=== PATIENT | male | born 1970 | race Caucasian/White ===

== ENCOUNTER → 2017-11-09 | Outpatient (CLI) | payer OTHER ==
--- NOTE | 2017-11-09 17:36 | CONS ---
CONSULTATION REASON FOR CONSULTATION: Sleep apnea. This is a 47-year-old male patient coming in accompanied by his due to concerns about sleep apnea. 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 He lives in [place]. He has a one-hour drive back and forth each day at work. He has not fallen asleep while driving nor has he fallen asleep while doing activities at work. He seems to be alert and awake. No major hypersomnia or sleepiness. Nevertheless, his is describing typical features of sleep apnea, as the patient has loud snoring and he quits breathing on multiple occasions throughout the night. His current Ellston score is 4. His weight has been fluctuating; at one point he was above 300 pounds and currently he is down to 294. He is trying to lose weight. His lowest body weight has been around 240 pounds. No excessive utilization of alcohol or caffeinated beverages. No intake of stimulants. He goes to bed around 11:00, wakes up at 5 a.m. in the morning, averages around 5 to 6 hours of sleep per night. No major medical problems or comorbidities otherwise other than hypertension. No restlessness in the lower extremities. No sleepwalking or sleeptalking. No nocturnal heartburn or shortness of breath. PAST MEDICAL HISTORY: 1. Hypertension. 2. Obesity. PAST SURGICAL HISTORY: Colostomy at a young age that was reversed. DRUG ALLERGIES: NOT KNOWN. MEDICATIONS: None other than lisinopril/hydrochlorothiazide 10/12.5 one tablet a day. SOCIAL HISTORY: Nonsmoker. No history of alcohol. No history of IV drugs. FAMILY HISTORY: Father has obstructive sleep apnea. REVIEW OF SYSTEMS: Twelve-point review of systems was done, and the positive findings are all mentioned above in the history of present illness. No grinding of the teeth. No sleepwalking or sleeptalking. No anxiety or panic attacks. He wakes up with a dry mouth. No palpitation. No heartburn at nighttime. No difficulties with memory or concentration, anxiety, claustrophobia or sexual dysfunction or depression. PHYSICAL EXAMINATION: BP is 140/70, pulse 96, respirations 16, temperature 98.8, saturation 99% on room air. Weight is 294. Height is 5 feet 8 inches, BMI 44.7. Neck size is 18-1/4 inches. GENERAL APPEARANCE: Calm, comfortable, in no acute distress. Head is atraumatic, normocephalic. No goiter or neck masses. There is bilateral tonsillar enlargement and an enlarged uvula with significant crowding of posterior pharynx. Mallampati class 4. Slight overbite. LUNGS: Clear to auscultation. HEART: Regular rate and rhythm. Normal S1, S2. No S3, S4. No murmurs. ABDOMEN: Soft, nontender. No organomegaly. EXTREMITIES: No edema. No cyanosis or clubbing. NEUROLOGIC: Alert and oriented x3. No focal neurological deficits. SKIN: Negative for ulceration or wounds or cellulitis. IMPRESSION: 1. Obstructive sleep apnea suspected, currently under investigation. 2. Bilateral tonsillar enlargement. 3. Significant crowding of posterior pharynx with a Mallampati class 4. 4. Obesity with a body mass index of 44.7. 5. Hypertension. PLAN: Proceed with a screening polysomnogram and decide treatment accordingly. MMTRINA / LULÚN: [id number] /
== END | disposition home or self-care (01) ==
LOC: SLEEP 15:33
PROVIDERS: ATTEND Internal Medicine Critical Care Medicine
DX: G47.30 Sleep apnea, unspecified (principal); J35.1 Hypertrophy of tonsils; I10 Essential (primary) hypertension; E66.9 Obesity, unspecified; Z68.41 Body mass index [BMI] 40.0-44.9, adult; Z79.899 Other long term (current) drug therapy
CPT/HCPCS: 99211

== ENCOUNTER → 2018-04-12 | Outpatient (CLI) | payer OTHER ==
--- NOTE | 2018-04-12 19:53 | PN ---
PROGRESS NOTE Sandeep is 47, coming in for a followup regarding his CPAP compliancy and clinical response. The patient was diagnosed having WILLIAM with an AHI of 21, worse during REM. He is extremely happy with the CPAP treatment. His sleep quality has improved and he is waking up much more alert and refreshed during the day. He has no specific complaints. His AHI while on treatment is down to 2.5. He is averaging about 6.5 hours of CPAP use per night. His CPAP use for more than 4 hours is 29 out of 30. He has absolutely no complaints and he is very much content. He is using AirFit P10 nose pillows. REVIEW OF SYSTEMS: Twelve-point review of systems was done. No chest pain. No altered mentation. No falling asleep while driving. No history of motor vehicle accidents while being sleepy or drowsy. No chest pain. No palpitation. No swelling in the lower extremities. No loss of consciousness. No other complaints otherwise. PHYSICAL EXAMINATION: BP is 133/76, pulse 96, respirations 16, weight 288, temperature 99.1. GENERAL APPEARANCE: Calm, comfortable. Head is atraumatic, normocephalic. NECK: Supple. There is no JVD. No goiter or neck masses. LUNGS: Clear to auscultation. HEART: Heart sounds are regular rate and rhythm. Normal S1, S2. No S3, S4. No murmurs. ABDOMEN: Soft, nontender. No organomegaly. EXTREMITIES: No edema. No cyanosis or clubbing. NEUROLOGIC: Alert and oriented x3. There are no focal neurological deficits. PSYCHIATRIC: Negative for anxiety or depression. IMPRESSION: 1. Obstructive sleep apnea with apnea/hypopnea index of 21.6, successfully treated with CPAP therapy. The patient is benefitting from treatment and is extremely compliant. 2. Hypersomnia, improved. 3. Obesity; losing weight. PLAN: Continue the same treatment. Renew the supplies on a yearly basis. Encourage weight loss. See me back in a year's time, earlier if needed. MMODL / IJN: [id number] /
== END | disposition home or self-care (01) ==
LOC: SLEEP 13:53
PROVIDERS: ATTEND Internal Medicine Critical Care Medicine
DX: G47.33 Obstructive sleep apnea (adult) (pediatric) (principal); E66.9 Obesity, unspecified; Z99.89 Dependence on other enabling machines and devices

== ENCOUNTER → 2019-06-06 | Outpatient (CLI) | payer OTHER ==
--- NOTE | 2019-06-06 16:50 | PN ---
PROGRESS NOTE Sandeep is coming in for an annual check regarding WILLIAM. He was diagnosed having obstructive sleep apnea. Moderate to severe with an AHI of 21, and the patient has been on CPAP therapy for the past 1 and half to 2 years and has been treated successfully without any major issues. I noted on today's evaluation, the patient has gained around 12 pounds since his last evaluation. Never the less, he is still feeling good. He is waking up alert and awake during the day. No major somnolence or sleepiness. The patient has been doing extremely well without any complications. On today's evaluation, I checked his CPAP machine. He is very compliant. He is averaging around 6 hours per night and his CPAP use for more than 4 hours, 29 out of 30. Leak is 6 L per minute. AHI is down to 0.5 indicating successful treatment. REVIEW OF SYSTEMS: Fourteen-point review of system was done. Positive findings were all mentioned above in the history of present illness. PHYSICAL EXAMINATION: BP is 144/96, pulse 90, respirations 16, temperature 98.5. Saturation 98% on room air. Weight is 306, height is 5 feet 7 inches. General appearance: Calm and comfortable. Head is atraumatic, normocephalic. NECK: Supple. No JVD. No goiter or neck masses. Mallampati class IV. LUNGS: Clear to auscultation. HEART: Sounds regular rate and rhythm. Normal S1, S2. ABDOMEN: Soft, nontender. No organomegaly. EXTREMITIES: No edema. No cyanosis or clubbing. NEUROLOGIC: Alert and oriented x3. There are no focal neurological deficits. PSYCHIATRIC: Negative for anxiety or depression. IMPRESSION: 1. Obstructive sleep apnea, moderate to severe AHI of 21, currently under successful treatment at a pressure of 9. 2. Obesity with interval weight gain. Current weight is up to 306. 3. Hypersomnia, recovered. 4. Snoring, recovered. PLAN: 1. Keep pressure unchanged at 9. 2. Offer the patient DreamWear under the nose small size nose mask. 3. Encourage weight loss. 4. Treatment is successful, no need for any pressure adjustments at this point in time. 5. See me back in a year's time in followup, earlier if needed. 6. All of his refills on his supplies were given including heated tubing, filters, chambers, humidification chambers and mask. MMODL / IJN: [id number] /

== ENCOUNTER → 2023-03-09 | Outpatient (CLI) | payer BC ==
--- NOTE | 2023-03-09 15:19 | P.SLEEP ---
History of Present Illness H&P Date: 03/09/23 This is a 50-year-old male patient with known history of obstructive sleep apnea. His last evaluation with me was on 04/12/2018. The patient is coming in to establish himself and have himself evaluated for sleep apnea. Note that the patient moderate severe disease with an AHI of 21. His disease was effectively treated with CPAP pressure of 9 cm of water. He continues to use his CPAP every night. Is very much dependent on CPAP. He cannot imagine himself living without his CPAP. He takes his CPAP machine whenever he travels out of town. He has been extremely compliant. His treatment response has been adequate and the patient is waking up refreshed and alert during the day. No snoring was CPAP. He has lost weight and he used to weigh 288 pounds and currently is down to 259. Based on the compliancy check on the machine, the patient has been averaging around 6.3 hours of CPAP use per night with a leak of 4 L/m and his AHI is down to 0.8. He is using the machine every night and his compliancy is at 100%. No new onset medical problems and comorbidities. Review of Systems A full review of system was done and is negative other than the things mentioned above. The patient has lost significant amount of weight over the past 40 years. No congestion heart failure. No strokes. No myocardial infarctions. No cardiac arrhythmias. No substance abuse. Past Medical History Past Medical History: Hypertension, Sleep Apnea/CPAP/BIPAP Medications and Allergies Home Medications and Allergies Comment(s): Lisinopril hydrochlorothiazide 20/12.5 mg 1 tablet a day Physical Exam BP is 142/67, pulse is 85, respirations 18, temperature 97.7, oxygen saturation is 97% on room air oxygen. Milmay score is at 1. BMI is 43.3. Weight is 285. The patient appeared well nourished and normally developed. Vital signs as documented. Head exam is unremarkable. No scleral icterus or corneal arcus noted. Neck is without jugular venous distension, thyromegaly, or carotid bruits. Carotid upstrokes are brisk bilaterally. Lungs are clear to auscultation and percussion. Cardiac exam reveals the PMI to be normally sized and situated. Rhythm is regular. First and second heart sounds normal. No murmurs, rubs or gallops. Abdominal exam reveals normal bowel sounds, no masses, no organomegaly and no aortic enlargement. Extremities are nonedematous and both femoral and pedal pulses are normal.Examination of the skin revealed no evidence of significant rashes, suspicious appearing nevi or other concerning lesions.Neurologically, the patient is awake and alert and the patient does not have any focal neurological deficit. Cranial nerves are essentially intact. Assessment and Plan Plan: Obstructive sleep apnea, moderately severe with an AHI of 21, successfully treated with CPAP therapy at a pressure of 9 cm of water History of obesity with interval weight loss current body mass index is 43 Hypertension Chronic hypersomnia recovered while being treated with CPAP and the patient has an Milmay score of 1 Plan Patient's treatment has been successful over the past years No need to replace his CPAP unit No need to make any changes on his CPAP settings Keep the same mask interface Treatment is successful in the compliancy data was checked All of his refills will be given and the patient is using the dreamware nasal mask small size under the nose Encourage further weight loss Maintain good sleep hygiene measures Maintain regular sleep schedule Continue back in 1 Sleep Note - Sleep Note Sleep Note: Temperature: Pulse Rate: Respiratory Rate: Blood Pressure: SpO2: Height: Weight: BMI: Neck Circumference:
== END ==
LOC: SLEEP 13:08
PROVIDERS: ATTEND Internal Medicine Critical Care Medicine
DX: G47.33 Obstructive sleep apnea (adult) (pediatric) (principal); I10 Essential (primary) hypertension; Z99.89 Dependence on other enabling machines and devices; E66.9 Obesity, unspecified; Z68.41 Body mass index [BMI] 40.0-44.9, adult; Z79.899 Other long term (current) drug therapy
CPT/HCPCS: 99211